=== PATIENT | female | born 1945 | race Caucasian/White ===

== ENCOUNTER → 2019-12-01 21:45 | Outpatient (CLI) | payer MEDICARE, BC ==
[~2019-12-01 21:45] MED LIST: DILTIAZEM 24HR120 M3 PO; KLONOPIN1 MG PO; OMEPRAZOLE40 MG PO; PRAVACHOL40 MG PO; VASOTEC10 MG PO
== END | disposition home or self-care (01) ==
LOC: D.LABREF 21:45
PROVIDERS: ATTEND Orthopaedic Surgery
DX: M16.11 Unilateral primary osteoarthritis, right hip (principal)

== ENCOUNTER 2019-12-03 11:01 | Inpatient (IN) | payer MEDICARE, BC ==
[~2019-12-03] VITALS: Ht 162.6 cm; Wt 118.2 kg
[2019-12-03] MEDS ORDERED: DILTIAZEM 24HR120 M3 PO (11:28)
[2019-12-03] MEDS ORDERED: OMEPRAZOLE40 MG PO (11:28)
[2019-12-03] MEDS ORDERED: VASOTEC10 MG PO (11:28)
[2019-12-03] MEDS ORDERED: PRAVACHOL40 MG PO (11:28)
[2019-12-03] MEDS ORDERED: KLONOPIN1 MG PO (11:29)
[2019-12-03 12:51] LABS: BASOPHILS 0.6 % (0-2); EOSINOPHILS 1.7 % (0-7); HEMATOCRIT 36.1 % (36.0-48.0); HEMOGLOBIN 11.3 g/dL (12-16); IMMATURE GRANULOCYTES 0.3 % (0-5); LYMPHOCYTES 26.8 % (15-50); MCH 24.7 pg (26.0-34.0); MCHC 31.3 g/dL (31.0-37.0); MEAN PLATELET VOLUME 9.1 fL (7.4-10.4); MONOCYTES 6.1 % (2-11); NEUTROPHILS 64.5 % (40-80); PLATELET COUNT 393 10x3/uL (130-400); RBC 4.57 10x6/uL (4.00-5.40); RDW 15.9 % (11.5-14.5); WBC 7.2 10x3/uL (4.8-10.8)
[2019-12-03 12:54] LABS: APTT 32.2 SECONDS (22.8-39.4); INR 0.94 (0.85-1.17); PROTIME 12.6 SECONDS (11.6-15.0)
[2019-12-03 13:00] LABS: ANION GAP 10.7 mmol/L (8-16); CALCIUM 8.8 mg/dL (8.5-10.1); CARBON DIOXIDE 28.6 mmol/L (21.0-32.0); CREATININE - SERUM 1.1 mg/dL (0.6-1.3); POTASSIUM - SERUM 4.3 mmol/L (3.5-5.1)
[2019-12-03 13:01] LABS: BILIRUBIN NEGATIVE (NEGATIVE); GLUCOSE NEGATIVE (NEGATIVE); KETONE NEGATIVE (NEGATIVE); NITRITE NEGATIVE (NEGATIVE); SPECIFIC GRAVITY 1.015 (1.005-1.020)
[2019-12-09] VITALS (10 sets, daily range): BP systolic 116–143; BP diastolic 54–93; Ht 162.6 cm; Wt 118.2 kg
[2019-12-09] MEDS ORDERED: VOLTAREN75 MG PO (08:31)
[2019-12-09] MEDS ORDERED: MOBIC7.5 MG PO (08:32)
[2019-12-09] MEDS ORDERED: DONNATAL E16.2 MG/5 PO (08:34)
--- NOTE | 2019-12-09 11:01 | NUR ---
THROUGH TRAFFIC KEPT TO A MINIMUM. HIBACLENS AND ALCOHOL USED TO WASH BEFORE PREP. STERILE GOWNED AND GLOVED TO PREP WITH CHLORAPREP.
--- NOTE | 2019-12-09 13:35 | NUR ---
RECEIVED TO ROOM 1210 VIA BED FROM PACU. A/O X3. C/O INTENSE PAIN TO RIGHT HIP LEVEL 10. WILL MONITOR.
--- NOTE | 2019-12-09 13:50 | NUR ---
GIVEN 4MG DILAUDID PO FOR CONTINUED C/O PAIN LEVEL 10. VSS AT THIS TIME. WILL MONITOR.
--- NOTE | 2019-12-09 14:50 | NUR ---
RESTING QUIETLY WITH EYES CLOSED. VSS. WHEN ASKED IF PAIN IMPROVED PATIENT STATED IT WAS A 10 AND SHE WAS DYING WITH PAIN. WILL MONITOR.
--- NOTE | 2019-12-09 14:55 | NUR ---
CALLED DR. ASHLEY TO REPORT NO PAIN MANAGEMENT. NEW ORDERS RECEIVED. GIVEN 1000MG TYLENOL PO FOR C/O RIGHT HIP PAIN LEVEL 10. WILL MONITOR.
--- NOTE | 2019-12-09 15:34 | NUR ---
REPORTS PAIN EASED SLIGHTLY AT THIS TIME. WILL CONTINUE TO MONITOR.
--- NOTE | 2019-12-09 19:04 | NUR ---
UP TO BR WITH 2 PERSON MOD ASSIST. VOIDED SMALL AMOUNT. NO CHANGES NOTED. DENIES NEEDS.
--- NOTE | 2019-12-09 21:10 | NUR ---
PT SITTING UP IN BED A&O. PIV IN LEFT FOREARM, PATENT, NO REDNESS OR SWELLING. RIGHT FEMORAL DRESSING DRY AND INTACT. PT USING ISP INSTRUCTED, GOOD EFFORT, 1500. SCDS ON. PT DENIES NEEDS. BED LOW, RAILS X2. CL IN REACH. WILL CONTINUE TO MONITOR.
[2019-12-10] VITALS: BP 146/73
[2019-12-10 03:49] VITALS: BP 143/68
--- NOTE | 2019-12-10 05:20 | NUR ---
PT LEFT FOREARM PIV INFILTRATED. PIV PLACED IN LEFT WRIST, 22 GAUGE, ONE ATTEMPT, PT TOLERATED WELL, IV INFUSING 1/2NS AT 50ML/HR. PT DENIES FURTHER NEEDS. BED LOW, RAILS X2. CL IN REACH. WILL CONTINUE TO MONITOR.
--- NOTE | 2019-12-10 07:15 | NUR ---
ASSISTED PT TO BR WITH WALKER. PT REPORTS "MY LEG IS A LITTLE SORE". DRESSING TO RIGHT GROIN INTACT WITH HALF DOLLAR SIZE OLD DRAINAGE NOTED. BRUISING NOTED TO RIGHT HIP. SALINE LOC TO RIGHT WRIST. SITE WITHOUT REDNESS OR EDEMA. PT REPORTS PAIN 4/10 AT THIS TIME. PT ASSISTED BACK TO BED. USES ISP WELL WITHOUT ENCOURAGEMENT. SCD'S NOTED TO BILAT LOWER EXTREMITIES. DENIES FURTHER NEEDS AT THIS TIME. CL WITHIN REACH. ENCOURAGED TO CALL WITH NEEDS. CONTINUE POC
[2019-12-10 07:17] LABS: HEMATOCRIT 29.4 % (36.0-48.0); HEMOGLOBIN 9.1 g/dL (12-16); MCH 24.9 pg (26.0-34.0); MCV 80.3 fL (80.0-100.0); MEAN PLATELET VOLUME 9.3 fL (7.4-10.4); RBC 3.66 10x6/uL (4.00-5.40); RDW 16.2 % (11.5-14.5); WBC 9.7 10x3/uL (4.8-10.8)
--- NOTE | 2019-12-10 07:17 | OP ---
PATIENT NAME: JESSENIA WISDOM MEDICAL RECORD: [id number] :49 LOCATION:D. D.1210 ADMISSION DATE:12/09/19 SURGEON: FROYLAN ASHLEY DO DATE OF OPERATION: 12/09/2019 PROCEDURE PERFORMED: Right total hip arthroplasty. PREOPERATIVE DIAGNOSIS: Right hip osteoarthritis. POSTOPERATIVE DIAGNOSIS: Right hip osteoarthritis. INDICATIONS: Ms. Wisdom is a 73-year-old female who had been scheduled a couple times for a right total hip that she had vmiz-lf-ttyg arthritis. She has had to have it done today by me. I informed her of the risks including infection, bleeding, continued pain, blood loss, blood clots, even and fracture and failure of implant, leg length discrepancy. She is okay with all that and wanted something done surgically. It has been affecting her activities of daily living and she has signed the consent. SURGEON: Froylan Ashley DO DESCRIPTION OF PROCEDURE: The patient was taken to the operative suite, laid in supine position, given general anesthetic and intubated. She was given 2 grams Ancef and 80 mg gentamicin preoperatively and a gram of TXA. She was then moved over to the Crook table where the right hip was prepped and draped in sterile fashion. A timeout was performed and everyone was in agreement with the correct site, side, patient and procedure. I then began by making an incision over the tensor fascia arianna muscle belly. Careful dissection made down to the fascia of the tensor fasciae latae muscle. The fascia was taken anteriorly, muscle belly posteriorly, opening up the rectus interval. Rectus was then taken medially, tensor fascia arianna laterally. I then opened up the capsule after tying off the ascending branch of lateral femoral circumflex and coagulating with the Aquamantys. I then opened up the capsule and put Hohmann's around the neck, mad neck cut and removed the head. I then removed the labrum and the pulvinar. I then began reaming and reamed up to 52, impacted the 52 cup and put the liner in and exposed the femur, broached to an 8. I got an x-ray, I needed to go more lateral. I did more lateral, went to a 13 broach and then trialled that, I thought we could go to a 14 with a -6 neck and it had equal lengths to the left side. I then took out the 13 broach and put in 14 broach and then put a 14 stem and with a -6 neck and then reduced the hip after putting the dual mobility head on, and x-rays were taken, no fracture is seen in the femur. Stem was in good position and they were equal lengths with the left side. The site was then irrigated with 10% povidone-iodine and 500 mL of normal saline solution and set for 3 minutes and irrigated out. This was done by Reed Reynoso, certified surgical attendant. He then closed the tensor fascia arianna fascia with #1 Vicryl in a acdoel-aa-lznwm and then a running locking stitch and the skin with 2-0 Vicryl in inverted interrupted fashion, 4-0 Monocryl in the skin. Prineo glue placed on the skin. Dressed with Telfa and Tegaderm. Awakened and taken to recovery in stable condition. Blood loss approximately 300 mL. COMPLICATIONS: None. TRANSINT:[id number] Voice Confirmation ID: [id number] DOCUMENT ID: [id number] OPERATIVE REPORT [id number] JESSENIA WISDOM,FROYLAN Mercedes DO at 0717 CC: [id number] DICTATION DATE: 12/09/19 1329 PARTS SALESMAN: 12/09/19 8268 ADM IN [place] [address] [place] [address]
[2019-12-10 07:36] VITALS: BP 124/66
--- NOTE | 2019-12-10 08:15 | NUR ---
PT MORNING MEDICATIONS ADMINISTERED. PT ANUEL WELL. PT PUTTING MAKEUP ON. DENIES FURTHER NEEDS AT THIS TIME. PT VOICES HOPES OF D/C HOME THIS EVENING. ENCOURAGED TO CALL WITH NEEDS. ISP WITHIN REACH AND USE.
--- NOTE | 2019-12-10 08:25 | MORECARE ---
CASE MANAGEMENT DISCHARGE SUMMARY PATIENT: JESSENIA CAMPOS UNIT: [id number] ADM DATE: 12/09/19 AGE: 73 : 47 SEX: F ROOM/BED: D.1210 AUTHOR: ANA CORTES PHYSICIAN: REFERRING PHYSICIAN: AB ASHLEY DO DATE OF SERVICE: 12/10/19 Discharge Plan Patient Name: JESSENIA CAMPOS [facility] [facility] 1945 Planned Disposition: Home with Home Health Anticipated Discharge Date: Discharge Date: Expected LOS: Initial Reviewer: [email or web address] Initial Review Date: 12/09/2019 Generated: 12/10/19 9:24 am DCPIA - Discharge Planning Initial Assessment Updated by [email or web address]: Elena Edwards on 12/10/19 8:23 am * Is the patient Alert and Oriented? Yes * How many steps to enter\exit or inside your home? NONE * PCP LUI PALAFOX * [facility] [place] * Preadmission Environment Home with Family * ADLs Independent * Equipment Shower Chair * List name and contact numbers for known caregivers / representatives who currently or will assist patient after discharge: JESSENIA (GRANDDAUGHTER) [phone] * Verbal permission to speak to the caregivers and representatives has been obtained from the patient. N/A * Community resources currently utilized None * Additional services required to return to the preadmission environment? Yes * Can the patient safely return to the preadmission environment? Yes * Has this patient been hospitalized within the prior 30 days at any hospital? No Patient Name: JESSENIA CAMPOS Page [phone] at 0825 All edits/amendments must be made on the electronic document DICTATION DATE: 12/10/19823 COMMUNITY DEVELOPMENT DIRECTOR: BENJI 12/10/19823 RPT#: [id number] DC DATE: STATUS: ADM IN [facility] [address] [place] [address] END OF REPORT
--- NOTE | 2019-12-10 08:31 | MORECARE ---
CASE MANAGEMENT DISCHARGE SUMMARY PATIENT: JESSENIA CAMPOS UNIT: [id number] ADM DATE: 12/09/19 AGE: 73 : 47 SEX: F ROOM/BED: D.1210 AUTHOR: SOPHIADOC PHYSICIAN: REFERRING PHYSICIAN: AB ASHLEY DO DATE OF SERVICE: 12/10/19 Discharge Plan Patient Name: JESSENIA CAMPOS Facility: [facility]:[place] : 1945 Planned Disposition: Home with Home Health Anticipated Discharge Date: Discharge Date: Expected LOS: Initial Reviewer: [email or web address] Initial Review Date: 12/09/2019 Generated: 12/10/19 9:31 am Comments DCP- Discharge Planning Updated by [email or web address]: Elena Edwards on 12/10/19 7:[address] Patient Name: JESSENIA CAMPOS Admission Status: Elective Accout number: [id number] Admission Date: 12-09-2019 : 1945 Admission Diagnosis: Attending: AB ASHLEY Current LOS: 1 Anticipated DC Date: Planned Disposition: Home with Home Health Primary Insurance: MEDICARE A & B Discharge Planning Comments: CM met with patient to complete initial dc planning assessment. CM educated patient on the CM role and verbal consent given by patient to complete assessment. Patient lives at home with her adult granddaughter where she is independent with her care. At discharge patient plans to return home and feels this is a safe discharge. CM discussed availability of home health, rehab services, and medical equipment. She has a shower chair, but will nee a BSC and a walker. She would like to have home health and ELSIE signed with [facility]AUD[facility]. I contacted Kiran with [facility]. Patient also stated that she received a phone call from a DME who will deliver her walker to the hospital. I will check with [employer] to see if they were the one who has the order from the office. Patient denied known discharge needs at this time. CM will continue to follow and will assist as needed with dc plans/needs. Or Nurse Manager: Elena Edwards DCPIA - Discharge Planning Initial Assessment Updated by [email or web address]: Elena Edwards on 12/10/19 8:23 am * Is the patient Alert and Oriented? Yes * How many steps to enter\exit or inside your home? NONE * PCP LUI PALAFOX * [facility]acy [facility] [place] * Preadmission Environment Home with Family * ADLs Independent * Equipment Shower Chair * List name and contact numbers for known caregivers / representatives who currently or will assist patient after discharge: JESSENIA (GRANDDAUGHTER) [phone] * Verbal permission to speak to the caregivers and representatives has been obtained from the patient. N/A * Community resources currently utilized None * Additional services required to return to the preadmission environment? Yes * Can the patient safely return to the preadmission environment? Yes * Has this patient been hospitalized within the prior 30 days at any hospital? No External Providers External Provider: [facility] Next Contact Date: Service Request Date: Service Type: Resolution: Reviewer: Comments: Last DP export: 12/10/19 7:25 am Patient Name: JESSENIA CAMPOS Page [phone] at 0831 All edits/amendments must be made on the electronic document DICTATION DATE: 12/10/19830 MANAGER OF LEARNING: BENJI 12/10/19830 RPT#: [id number] DC DATE: STATUS: ADM IN [facility] [address] [place] [address] END OF REPORT
--- NOTE | 2019-12-10 08:38 | MORECARE ---
CASE MANAGEMENT DISCHARGE SUMMARY PATIENT: JESSENIA CAMPOS UNIT: [id number] ADM DATE: 12/09/19 AGE: 73 : 47 SEX: F ROOM/BED: D.1210 AUTHOR: SOPHIA,DOC PHYSICIAN: REFERRING PHYSICIAN: AB ASHLEY DO DATE OF SERVICE: 12/10/19 Discharge Plan Patient Name: JESSENIA CAMPOS Facility: [facility]:[place] : 1945 Planned Disposition: Home with Home Health Anticipated Discharge Date: Discharge Date: Expected LOS: Initial Reviewer: [email or web address] Initial Review Date: 12/09/2019 Generated: 12/10/19 9:38 am Comments DCP- Discharge Planning Updated by [email or web address]: Elena Edwards on 12/10/19 7:[address] SPOKE WITH COLEEN POWERS ( [phone]) SHE DOES HAVE THE ORDER FOR THE WALKER AND I HAVE SENT THE BSC ORDER TO HER AND THEY WILL DELIVER PRIOR TO DISCHARGE. WE JUST NEED TO LET HER KNOW WHEN SHE HAS DC ORDERS DCP- Discharge Planning Updated by [email or web address]: Elena Edwards on 12/10/19 7:[address] Patient Name: JESSENIA CAMPOS Admission Status: Elective Accout number: [id number] Admission Date: 12-09-2019 : 1945 Admission Diagnosis: Attending: AB ASHLEY Current LOS: 1 Anticipated DC Date: Planned Disposition: Home with Home Health Primary Insurance: MEDICARE A & B Discharge Planning Comments: CM met with patient to complete initial dc planning assessment. CM educated patient on the CM role and verbal consent given by patient to complete assessment. Patient lives at home with her adult granddaughter where she is independent with her care. At discharge patient plans to return home and feels this is a safe discharge. DORINDA discussed availability of home health, rehab services, and medical equipment. She has a shower chair, but will nee a BSC and a walker. She would like to have home health and ELSIE signed with [facility] CHAUDHRY. I contacted Kiran with [facility]. Patient also stated that she received a phone call from a DME who will deliver her walker to the hospital. I will check with [employer] to see if they were the one who has the order from the office. Patient denied known discharge needs at this time. CM will continue to follow and will assist as needed with dc plans/needs. Cash Processor: Elena Edwards DCPIA - Discharge Planning Initial Assessment Updated by [email or web address]: Elena Edwards on 12/10/19 8:23 am * Is the patient Alert and Oriented? Yes * How many steps to enter\exit or inside your home? NONE * PCP LUI PALAFOX * [facility]acy [facility] [place] * Preadmission Environment Home with Family * ADLs Independent * Equipment Shower Chair * List name and contact numbers for known caregivers / representatives who currently or will assist patient after discharge: JESSENIA (GRANDDAUGHTER) [phone] * Verbal permission to speak to the caregivers and representatives has been obtained from the patient. N/A * Community resources currently utilized None * Additional services required to return to the preadmission environment? Yes * Can the patient safely return to the preadmission environment? Yes * Has this patient been hospitalized within the prior 30 days at any hospital? No External Providers [facility] Next Contact Date: Service Request Date: Service Type: Resolution: Reviewer: Comments: Last DP export: 12/10/19 7:31 am Patient Name: JESSENIA CAMPOS Page [phone] at 0838 All edits/amendments must be made on the electronic document DICTATION DATE: 12/10/19837 ANY COMMODITY SALES DELIVERER: BENJI 12/10/19837 RPT#: [id number] DC DATE: STATUS: ADM IN [facility] [address] [place] [address] END OF REPORT
--- NOTE | 2019-12-10 09:51 | NUR ---
PT AMBULATING IN HALLWAY WITH PHYSICAL THERAPY. PT ANUEL WELL VOICING WISHES TO D/C HOME.
[2019-12-10] MEDS ORDERED: ELIQUIS2.5 MG PO (12:09)
[2019-12-10] MEDS ORDERED: DILAUDID4 MG PO (12:09)
[2019-12-10] MEDS ORDERED: KEFLEX500 MG PO (12:10)
--- NOTE | 2019-12-10 13:34 | NUR ---
PT IV DISCONTINUED TO RIGHT WRIST. DISCHARGE INSTRUCTIONS WITH PRESCRIPTIONS GIVEN. DISCUSSED NEW MEDICATIONS PRESCRIBED. MEDICAL EQUIPMENT RECEIVED AND SENT WITH PT. PT TAKEN OUT VIA W/C TO PRIVATE VEHICLE.
--- NOTE | 2019-12-10 15:44 | MORECARE ---
CASE MANAGEMENT DISCHARGE SUMMARY PATIENT: JESSENIA CAMPOS UNIT: [id number] ADM DATE: 12/09/19 AGE: 73 : 47 SEX: F ROOM/BED: D.1210 AUTHOR: ANA CORTES PHYSICIAN: REFERRING PHYSICIAN: AB ASLHEY DO DATE OF SERVICE: 12/10/19 Discharge Plan Patient Name: JESSENIA CAMPOS Facility: [facility]:[place] : 1945 Planned Disposition: Home with Home Health Anticipated Discharge Date: Discharge Date: 12/10/2019 Expected LOS: Initial Reviewer: [email or web address] Initial Review Date: 12/09/2019 Generated: 12/10/19 4:43 pm Comments DCP- Discharge Planning Updated by [email or web address]: Elena Edwards on 12/10/19 2:[address] PATIENT DISCHARGED HOME WITH [facility] DCP- Discharge Planning Updated by [email or web address]: Elena Edwards on 12/10/19 7:[address] SPOKE WITH COLEEN POWERS ( [phone]) SHE DOES HAVE THE ORDER FOR THE WALKER AND I HAVE SENT THE BSC ORDER TO HER AND THEY WILL DELIVER PRIOR TO DISCHARGE. WE JUST NEED TO LET HER KNOW WHEN SHE HAS DC ORDERS DCP- Discharge Planning Updated by [email or web address]: Elena Edwards on 12/10/19 7:[address] Patient Name: JESSENIA CAMPOS Admission Status: Elective Accout number: [id number] Admission Date: 12-09-2019 : 1945 Admission Diagnosis: Attending: AB ASHLEY Current LOS: 1 Anticipated DC Date: Planned Disposition: Home with Home Health Primary Insurance: MEDICARE A & B Discharge Planning Comments: CM met with patient to complete initial dc planning assessment. CM educated patient on the CM role and verbal consent given by patient to complete assessment. Patient lives at home with her adult granddaughter where she is independent with her care. At discharge patient plans to return home and feels this is a safe discharge. CM discussed availability of home health, rehab services, and medical equipment. She has a shower chair, but will nee a BSC and a walker. She would like to have home health and ELSIE signed with [facility] CHAUDHRY. I contacted Ray with [facility]. Patient also stated that she received a phone call from a DME who will deliver her walker to the hospital. I will check with [employer] to see if they were the one who has the order from the office. Patient denied known discharge needs at this time. CM will continue to follow and will assist as needed with dc plans/needs. Corporate Development Manager: Elena Edwards DCPIA - Discharge Planning Initial Assessment Updated by [email or web address]: Elena Edwards on 12/10/19 8:23 am * Is the patient Alert and Oriented? Yes * How many steps to enter\exit or inside your home? NONE * PCP LUI PALAFOX * [facility]acy [facility] [place] * Preadmission Environment Home with Family * ADLs Independent * Equipment Shower Chair * List name and contact numbers for known caregivers / representatives who currently or will assist patient after discharge: JESSENIA (GRANDDAUGHTER) [phone] * Verbal permission to speak to the caregivers and representatives has been obtained from the patient. N/A * Community resources currently utilized None * Additional services required to return to the preadmission environment? Yes * Can the patient safely return to the preadmission environment? Yes * Has this patient been hospitalized within the prior 30 days at any hospital? No Last DP export: 12/10/19 7:38 am Patient Name: JESSENIA CAMPOS Page [phone] at 1544 All edits/amendments must be made on the electronic document DICTATION DATE: 12/10/19 1543 PANEL MACHINE TENDER: BENJI 12/10/19 1543 RPT#: [id number] DC DATE:12/10/19 STATUS: DIS IN [facility] [address] [place] [address] END OF REPORT
--- NOTE | 2019-12-11 16:12 | MORECARE ---
CASE MANAGEMENT DISCHARGE SUMMARY PATIENT: JESSENIA CAMPOS UNIT: [id number] ADM DATE: 12/09/19 AGE: 73 : 47 SEX: F ROOM/BED: D.1210 AUTHOR: ANA CORTES PHYSICIAN: REFERRING PHYSICIAN: AB ASHLEY DO DATE OF SERVICE: 12/11/19 Discharge Plan Patient Name: JESSENIA CAMPOS Facility: [facility]:[place] : 1945 Planned Disposition: Home with Home Health Anticipated Discharge Date: Discharge Date: 12/10/2019 Expected LOS: Initial Reviewer: [email or web address] Initial Review Date: 12/09/2019 Generated: 12/11/19 5:11 pm Comments DCP- Discharge Planning Updated by [email or web address]: Elena Edwards on 12/10/19 2:[address] PATIENT DISCHARGED HOME WITH [facility] DCP- Discharge Planning Updated by [email or web address]: Elena Edwards on 12/10/19 7:[address] SPOKE WITH COLEEN POWERS ( [phone]) SHE DOES HAVE THE ORDER FOR THE WALKER AND I HAVE SENT THE BSC ORDER TO HER AND THEY WILL DELIVER PRIOR TO DISCHARGE. WE JUST NEED TO LET HER KNOW WHEN SHE HAS DC ORDERS DCP- Discharge Planning Updated by [email or web address]: Elena Edwards on 12/10/19 7:[address] Patient Name: JESSENIA CAMPOS Admission Status: Elective Accout number: [id number] Admission Date: 12-09-2019 : 1945 Admission Diagnosis: Attending: AB ASHLEY Current LOS: 1 Anticipated DC Date: Planned Disposition: Home with Home Health Primary Insurance: MEDICARE A & B Discharge Planning Comments: CM met with patient to complete initial dc planning assessment. CM educated patient on the CM role and verbal consent given by patient to complete assessment. Patient lives at home with her adult granddaughter where she is independent with her care. At discharge patient plans to return home and feels this is a safe discharge. CM discussed availability of home health, rehab services, and medical equipment. She has a shower chair, but will nee a BSC and a walker. She would like to have home health and ELSIE signed with [facility] CHAUDHRY. I contacted Ray with [facility]. Patient also stated that she received a phone call from a DME who will deliver her walker to the hospital. I will check with [employer] to see if they were the one who has the order from the office. Patient denied known discharge needs at this time. CM will continue to follow and will assist as needed with dc plans/needs. Cullet Crusher And Washer: Elena Edwards DCPIA - Discharge Planning Initial Assessment Updated by [email or web address]: Elena Edwards on 12/10/19 8:23 am * Is the patient Alert and Oriented? Yes * How many steps to enter\exit or inside your home? NONE * PCP LUI PALAFOX * [facility]acy [facility] [place] * Preadmission Environment Home with Family * ADLs Independent * Equipment Shower Chair * List name and contact numbers for known caregivers / representatives who currently or will assist patient after discharge: JESSENIA (GRANDDAUGHTER) [phone] * Verbal permission to speak to the caregivers and representatives has been obtained from the patient. N/A * Community resources currently utilized None * Additional services required to return to the preadmission environment? Yes * Can the patient safely return to the preadmission environment? Yes * Has this patient been hospitalized within the prior 30 days at any hospital? No Last DP export: 12/10/19 2:44 pm Patient Name: JESSENIA CAMPOS Page [phone] at 1612 All edits/amendments must be made on the electronic document DICTATION DATE: 12/11/19 161 SUPPORT SERVICES TECH: BENJI 12/11/19 1611 RPT#: [id number] DC DATE:12/10/19 STATUS: DIS IN [facility] [address] [place] [address] END OF REPORT
== END 2019-12-10 13:37 | disposition home health service (06) | DRG 470 ==
LOC: D.SDCHOLD 12-09 07:30 → D.M3 12-09 07:30 → D.SDCHOLD 12-09 09:30 → D.M3 12-09 12:56 → D.SDCHOLD 12-09 13:30 → D.M3 12-10 13:37
PROVIDERS: ADMIT Orthopaedic Surgery; ATTEND Orthopaedic Surgery
PROC: 0SR90JZ Replacement of Right Hip Joint with Synthetic Substitute, Open Approach (ICD-10-PCS; principal; 2019-12-09 09:30)
DX: M16.11 Unilateral primary osteoarthritis, right hip (principal); I10 Essential (primary) hypertension; K21.9 Gastro-esophageal reflux disease without esophagitis; Z87.891 Personal history of nicotine dependence

== ENCOUNTER 2020-01-21 10:06 | Day surgery (SDC) | payer MEDICARE, BC ==
[~2020-01-21] VITALS: Ht 162.6 cm; Wt 113.4 kg
[~2020-01-21 10:06] MED LIST changes: +DILAUDID4 MG PO; +DONNATAL E16.2 MG/5 PO; +ELIQUIS2.5 MG PO; +KEFLEX500 MG PO; +MOBIC7.5 MG PO; +VOLTAREN75 MG PO
[2020-01-21] MEDS ORDERED: BAYER CHEWABLE81 MG PO (10:58)
--- NOTE | 2020-01-21 11:10 | NUR ---
PATIENT STATES HAS HAD TWO OVERNIGHT STAYS IN HOSPITAL IN LAST 12 MONTHS-HERE @ [facility] FOR INITIAL HIP SURGERY AND IN [place] FOR LOWER GI BLEED DUE TO DIVERTICULOSIS
[2020-01-21 11:11] VITALS: BP 112/65; Ht 162.6 cm; Wt 113.4 kg
[2020-01-21 11:36] LABS: HEMATOCRIT 32.3 % (36.0-48.0); HEMOGLOBIN 9.8 g/dL (12-16); MCH 23.7 pg (26.0-34.0); MCHC 30.3 g/dL (31.0-37.0); MCV 78.2 fL (80.0-100.0); MEAN PLATELET VOLUME 10.5 fL (7.4-10.4); RBC 4.13 10x6/uL (4.00-5.40)
[2020-01-21] MEDS ORDERED: CIPRO500 MG PO (11:58)
[2020-01-21] MEDS ORDERED: ULTRAM50 MG PO (11:58)
--- NOTE | 2020-01-21 14:11 | NUR ---
1330 IV REMOVED AND PRESSURE HELD. 1330 PT INSTRUCTIONS GIVEN AND GENERAL INFORMATION GIVEN ABOUT HEMAVAC.1350 PT VOIDED
--- NOTE | 2020-01-22 07:42 | OP ---
PATIENT NAME: JESSENIA WISDOM MEDICAL RECORD: [id number] :49 LOCATION:[facility] ADMISSION DATE: SURGEON: FROYLAN ASHLEY DO DATE OF OPERATION: 01/21/2020 PROCEDURE PERFORMED: Right hip I&D with Kerecis and wound VAC application. PREOPERATIVE DIAGNOSIS: Right hip surgical wound dehiscence. POSTOPERATIVE DIAGNOSIS: Right hip surgical wound dehiscence. INDICATIONS: Ms. Wisdom is a 74-year-old female who underwent right total hip replacement approximately a month ago. The wound has had some problems healing right away with her pannus folded over onto the incision that was 1 x 1 cm and then even smaller one just proximal to it. I saw her in the office and told her we can give a little push to heal, but it was not too concerning, but it probably would just take a little bit longer, but the Kerecis would give it a little better chance to heal quickly and put a wound VAC on it for a week. She is okay with that and she is aware of the risks of infection, bleeding, damage to nerves and vessels, need for further surgery, continued pain, repeat Kerecis application, blood clots, and even . She signed the consent. SURGEON: Froylan Ashley DO DATE OF SERVICE: The patient was taken to the operative suite, laid in supine position, given general anesthetic and 2 g Ancef, and an LMA was placed. The right hip was then prepped and draped in sterile fashion. A time-out was performed and everyone was in agreeance with correct site, side, patient, and procedure. I then used curettes and debrided the wounds down to a bleeding base and removed the outer rim with a pickup and a 10 blade to get a good bleeding surface. She had good granulation tissue at the base. I then applied the Kerecis in each of the wounds and sutured into place with 4-0 Monocryl and applied a Prevena Plus wound VAC. It held good suction. She was then awakened and taken to recovery in stable condition. BLOOD LOSS: Minimal. Complications: None. NTS:[id number] Voice Confirmation ID: [id number] DOCUMENT ID: [id number] FROYLAN ASHLEY DO at [id number] CC: [id number] DICTATION DATE: 01/21/20 1221 FACILITY MAINTENANCE HELPER: 01/21/202119 [facility] 01/21/20 [facility] [address] [address]
== END 2020-01-21 13:55 | disposition home or self-care (01) ==
LOC: D.OPS 10:06
PROVIDERS: Anesthesiology; ATTEND Orthopaedic Surgery
DX: T81.30XA Disruption of wound, unspecified, initial encounter (principal); Z96.641 Presence of right artificial hip joint; M16.11 Unilateral primary osteoarthritis, right hip